=== PATIENT | male | born 1970 | race Caucasian/White ===

== ENCOUNTER 2017-09-23 21:54 | Emergency (ER) | payer OTHER ==
[~2017-09-23] VITALS: Ht 177.8 cm; Wt 81.6 kg
[2017-09-23] MEDS ORDERED: ENALAPRIL MALEA10 MG (22:44)
[2017-09-24] MEDS ORDERED: KETO10TA2 PO (03:41)
[2017-09-24] MEDS ORDERED: NORFLEX100MG PO (03:41)
== END 2017-09-24 04:33 | disposition home or self-care (01) ==
LOC: ER 21:54
DX: R51 Headache (principal)

== ENCOUNTER 2021-06-18 08:00 | Outpatient (CLI) | payer OTHER ==
[~2021-06-18 08:00] MED LIST: ENALAPRIL MALEA10 MG; KETO10TA2 PO; NORFLEX100MG PO
== END 2021-06-18 08:30 | disposition home or self-care (01) ==
LOC: PPH VACUNA 08:00
PROVIDERS: ATTEND Emergency Medicine Pediatric Emergency Medicine
DX: Z23 Encounter for immunization (principal)

== ENCOUNTER 2021-10-14 11:26 | Emergency (ER) | payer OTHER ==
[~2021-10-14] VITALS: Ht 177.8 cm; Wt 90.7 kg
[2021-10-14] MEDS ORDERED: LOSARTAN-HCTZ1 EAC2 PO (12:08)
[2021-10-14] MEDS ORDERED: ROSUVASTATIN CA40 MG (12:09)
[2021-10-14] MEDS ORDERED: IBU800 MG PO (16:07)
== END 2021-10-14 16:12 | disposition home or self-care (01) ==
LOC: ER 11:26
DX: S69.92XA Unspecified injury of left wrist, hand and finger(s), initial encounter (principal); V03.99XA Pedestrian with other conveyance injured in collision with car, pick-up truck or van, unspecified whether traffic or nontraffic accident, initial encounter; Y93.01 Activity, walking, marching and hiking; Y92.413 State road as the place of occurrence of the external cause; Z86.73 Personal history of transient ischemic attack (TIA), and cerebral infarction without residual deficits; E78.00 Pure hypercholesterolemia, unspecified; I10 Essential (primary) hypertension; S59.912A Unspecified injury of left forearm, initial encounter